=== PATIENT | female | born 1980 | race Asian ===

== ENCOUNTER 2021-07-06 17:09 | Emergency (ER) | payer OTHER ==
[~2021-07-06] VITALS: Ht 160 cm; Wt 85.7 kg
[2021-07-06 17:20] VITALS: BP_SYST 130
--- NOTE | 2021-07-06 17:20 | NUR ---
Pt to bed 8 for evaluation.
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
--- NOTE | 2021-07-06 17:38 | NUR ---
Portable X-rays done at bedside.
[2021-07-06 18:53] VITALS: BP_SYST 130
--- NOTE | 2021-07-06 18:53 | NUR ---
Patient given written and verbal discharge instructions and verbalizes understanding. Dr. Grupo ALBRIGHT MD discussed with patient the results and treatment provided. Patient in stable condition. ID arm band removed. Patient educated on pain management and to follow up with PMD. Pain Scale 0/10. Opportunity for questions provided and answered.
== END 2021-07-06 18:53 | disposition home or self-care (01) ==
LOC: SED 17:09
DX: S16.1XXA Strain of muscle, fascia and tendon at neck level, initial encounter (principal); S39.012A Strain of muscle, fascia and tendon of lower back, initial encounter; V49.49XA Driver injured in collision with other motor vehicles in traffic accident, initial encounter; Y93.89 Activity, other specified; Y92.89 Other specified places as the place of occurrence of the external cause; Y99.8 Other external cause status
CPT/HCPCS: 71045; 72040-TC; 72100-TC; 99284